=== PATIENT | female | born 1970 | race Caucasian/White ===

== ENCOUNTER 2018-09-26 03:49 | Emergency (ER) | payer SELFPAY ==
[2018-09-26 04:27] LABS: Bilirubin Small (Negative); Blood, Urine Negative (Negative); Clarity CLEAR (Clear); Glucose, Urine (Dipstick) Negative (Negative); Leukocyte Negative (Negative); Nitrite Negative (Negative); Protein, Urine (Dipstick) Negative (Neg-Trace); Specific Gravity, Urine 1.033 (1.002-1.036); pH, Urine 5.5 (5.0-9.0)
[2018-09-26 04:42] LABS: #Basophils 0.1 thou/uL (0.0-0.2); #Eosinphils 0.1 thou/uL (0.0-0.7); #Lymphocytes 3.8 thou/uL (1.20-3.40); #Monocytes 1.2 thou/uL (0.11-0.59); #Neutrophils 10.3 thou/uL (1.40-6.50); %Basophils 0.8 % (0.0-1.0); %Eosinophils 0.4 % (0.0-10.0); %Lymphocytes 24.7 % (21.0-51.0); %Monocytes 7.7 % (0.0-10.0); %Neutrophils 66.4 % (42.0-75.0); Hemoglobin 13.4 g/dL (12.0-16.0); Mean Corpuscular HGB CONC 33.3 g/dL (32.0-36.0); Mean Corpuscular Hemoglobin 30.2 pg (27.0-31.0); Mean Corpuscular Volume 90.8 fL (78.0-98.0); Mean Platelet Volume 7.4 fL (7.4-10.4); Platelet Count 335 thou/uL (130-400); RBC Distribution Width 12.3 % (11.5-14.5); Red Blood Cell (RBC) Count 4.42 mill/uL (4.20-5.40); White Blood Cell (WBC) Count 15.5 thou/uL (4.8-10.8)
[2018-09-26 05:04] LABS: ALT (SGPT) 33 U/L (8-55); AST (SGOT) 29 U/L (5-34); Albumin 4.4 g/dL (3.5-5.0); Alkaline Phosphatase 107 U/L (40-150); Anion Gap 19 mmol/L (10-20); BUN (Urea Nitrogen) 19 mg/dL (7.0-18.7); Bilirubin, Total 0.8 mg/dL (0.2-1.2); Calc. Creatinine Clearance 0 mL/min (70-130); Calcium 9.7 mg/dL (7.8-10.44); Carbon Dioxide 18 mmol/L (22-29); Chloride 103 mmol/L (98-107); Estimated GFR-MDRD 78; Glucose 108 mg/dL (70-105); Lipase 10 U/L (8-78); Potassium 4.3 mmol/L (3.5-5.1); Protein, Total 8.4 g/dL (6.0-8.3); Sodium 136 mmol/L (136-145)
[2018-09-26] MEDS ORDERED: cefTRIAXone\\ROCEPHIN 2 GM VIAL ONE (06:14)
[2018-09-26] MEDS ORDERED: Sodium Chloride 0.9% 100 ML ONE (06:14)
[2018-09-26] MEDS ORDERED: Azithromycin 250 MG TAB ONE (06:14)
--- NOTE | 2018-09-26 06:42 | CT ---
CT ABDOMEN AND PELVIS WITH CONTRAST: INDICATIONS: Right-sided abdominal pain. COMPARISON: 11/02/2015 FINDINGS: There is consolidation of the partially imaged right middle lobe, indicative of pneumonia, containing air bronchograms. Mild subpleural nodularity of the lingula may relate to volume loss, although it is incompletely assessed. There are foci of increased density within the gallbladder, which is moder ately distended. There is a stable sized left adrenal mass, measuring 1.2 cm in diameter. There has been interval increase in volume of previously documented right adnexal cyst, now 6.3 cm in diameter . The bowel is incompletely assessed without enteric contrast. Prior cellulitis of the ventral pelv is has resolved. Otherwise, no significant additional interval change. IMPRESSION: 1. Findings that likely relate to right middle lobe pneumonia. Recommend followup with two view jas [facility]. 2. Moderately distended gallbladder with internal hyperdensity that may represent cholelithiasis, so me of which may be impacted at the level of the neck. Recommend followup with gallbladder ultrasound . 3. Size increasing right adnexal cystic lesion, 6.3 cm, abnormal for patient's age. The primary con sideration would be a cystic adnexal neoplasm. Recommend dedicated pelvic ultrasound as the next roland p in evaluation. 4. Stable left adrenal mass. CODE T POS: XUAN
[2018-09-26] MEDS ORDERED: ISOVUE-370 76%-LOCM 1 ML ONE (07:56)
== END 2018-09-26 07:01 | disposition home or self-care (01) ==
LOC: ERS 03:49
DX: K80.20 Calculus of gallbladder without cholecystitis without obstruction (principal); J18.9 Pneumonia, unspecified organism; N83.201 Unspecified ovarian cyst, right side; F41.9 Anxiety disorder, unspecified; F17.210 Nicotine dependence, cigarettes, uncomplicated
CPT/HCPCS: 74177; 80053; 81003; 83690; 85025; 96361; 96365; J0696; J7050; Q9966